=== PATIENT | female | born 1960 | race Two or more races ===

== ENCOUNTER 2024-10-13 16:34 | Emergency (ER) | payer MEDICAID ==
[~2024-10-13] VITALS: Ht 160 cm; Wt 75.6 kg
[2024-10-13 16:45] VITALS: BP 142/60; PULSE 81; RESP 16; O2SAT 98
== END 2024-10-13 16:54 | disposition left against medical advice (07) ==
LOC: ER 16:34
DX: N64.4 Mastodynia (principal); G44.209 Tension-type headache, unspecified, not intractable; Z53.21 Procedure and treatment not carried out due to patient leaving prior to being seen by health care provider